=== PATIENT | female | born 2000 | race African-American/Black ===

== ENCOUNTER 2019-10-05 20:58 | Observation (INO) ==
[2019-10-05 23:35] LABS: ABS Basophils 0.1 10^3/ul (0-0.2); ABS Eosinophils 0.1 10^3/ul (0-0.6); ABS Lymphocytes 1.8 10^3/ul (1.0-4.8); ABS Monocytes 0.5 10^3/ul (0-0.8); Eosinophil % 1.9 %; Hematocrit 35 % (35-47); Hemoglobin 11.8 g/dL (12.0-16.0); Lymphocyte % 23.5 %; Mean Corpuscular HGB Conc 34 g/dL (31-36); Mean Corpuscular Hemoglobin 31 pg (27-31); Mean Corpuscular Volume 91 fL (80-97); Mean Platelet Volume 7.8 fL (7.4-10.4); Nucleated Red Blood Cells % 0.1; Platelet Count 209 10^3/uL (150-450); Red Blood Count 3.82 10^6 /uL (3.70-4.87); Red Cell Distribution Width 13 % (10-15); White Blood Count 7.9 10^3/uL (3.5-10.8)
[2019-10-05 23:53] LABS: Albumin 4.4 g/dL (3.2-5.2); Albumin/Globulin Ratio 1.4 (1-3); BUN/Creatinine Ratio 13.6 (8-20); C Reactive Protein 15.05 mg/L (<8.01); Calcium 9.2 mg/dL (8.6-10.3); EGFR African American 110.2 (>60); EGFR Non-African American 91.1 (>60); Globulin 3.2 g/dL (2-4); Potassium 3.2 mmol/L (3.5-5.0); Total Bilirubin 0.4 mg/dL (0.2-1.0); Total Protein 7.6 g/dL (6.4-8.9)
[2019-10-06] MEDS ORDERED: NS 0.9% 1000 ml BAG 1,000 ML IV ONE (00:40)
[2019-10-06 00:49] LABS: Urine Appearance Clear; Urine Bacteria Absent (Absent); Urine Bilirubin Negative (Negative); Urine Blood Negative (Negative); Urine Color Yellow; Urine Glucose Negative (Negative); Urine Ketones Negative (Negative); Urine Nitrite Negative (Negative); Urine Protein Negative (Negative); Urine Red Blood Cell Absent (Absent); Urine Specific Gravity 1.025 (1.010-1.030); Urine Squamous Epithelial Cell Present (Absent); Urine Urobilinogen Negative (Negative); Urine White Blood Cell Absent (Absent)
[2019-10-06] MEDS ORDERED: Piperacillin/Tazobac ADVAN(*) 3.375 GM in NS 0.9% 100 ml BAG 100 ML IVPB ONE (00:58)
[2019-10-06] MEDS ORDERED: Lactated Ringers 1000 ml BAG 1,000 ML IV SCH (01:05)
[2019-10-06 05:54] LABS: ABS Eosinophils 0.2 10^3/ul (0-0.6); ABS Lymphocytes 2.4 10^3/ul (1.0-4.8); ABS Monocytes 0.4 10^3/ul (0-0.8); Eosinophil % 2.2 %; Hematocrit 29 % (35-47); Hemoglobin 9.8 g/dL (12.0-16.0); Lymphocyte % 35.3 %; Mean Corpuscular HGB Conc 34 g/dL (31-36); Mean Corpuscular Hemoglobin 31 pg (27-31); Mean Corpuscular Volume 90 fL (80-97); Mean Platelet Volume 8.2 fL (7.4-10.4); Nucleated Red Blood Cells % 0.1; Platelet Count 159 10^3/uL (150-450); Red Blood Count 3.19 10^6 /uL (3.70-4.87); Red Cell Distribution Width 13 % (10-15); White Blood Count 6.8 10^3/uL (3.5-10.8)
[2019-10-06] MEDS ORDERED: CEFAZOLIN IVPB ONE (07:57)
[2019-10-06] MEDS ORDERED: NS 0.9% IVPB ONE (07:57)
[2019-10-06] MEDS ORDERED: metroNIDAZOLE IV 500 MG/100ML 500 MG/100 ML BAG IVPB ONE (07:59)
[2019-10-06] MEDS ORDERED: ceFAZolin 2 GM PREMIX in ORs 2 GM/50 ML BAG IVPB ONE (09:00)
[2019-10-06] MEDS ORDERED: Bupivacaine 0.25% EPI 200,000 30 ML SDV ONE (09:19)
[2019-10-06] MEDS ORDERED: Naloxone 0.4 mg VIAL 0.4 mg/ml 1 ml VIAL IV PRN (09:44)
[2019-10-06] MEDS ORDERED: Rocuronium 50 mg VIAL 10 mg/ml 5 ml VIAL (50 mg) ONE (09:51)
[2019-10-06] MEDS ORDERED: fentaNYL 100 mcg/2 ml 50 MCG/ML VIAL ONE (09:51)
[2019-10-06] MEDS ORDERED: Midazolam 2 mg/2 ml VIAL 1 mg/ml 2 ml VIAL (2 mg) ONE (09:51)
[2019-10-06] MEDS ORDERED: Propofol 10 MG/ML 20 ML BTL ONE (11:29)
[2019-10-06] MEDS ORDERED: Ondansetron 4 mg VIAL 2 MG/ML 2 ml VIAL ONE ×2 (11:29→12:14)
[2019-10-06] MEDS ORDERED: Succinylcholine 200 mg VIAL 20 mg/ml 10 ml VIAL (200 mg) ONE (11:29)
[2019-10-06] MEDS ORDERED: Lidocaine 2% PF 5 ML VIAL ONE (11:29)
[2019-10-06] MEDS ORDERED: Dexamethasone IV 4 MG/ML VIAL 1 ml VIAL ONE (11:29)
[2019-10-06] MEDS ORDERED: Acetaminophen IV 1 GM/100ML 100 ML ONE (11:46)
[2019-10-06] MEDS ORDERED: HYDROmorphone 1 MG/1 ML SYRINGE ONE (12:14)
[2019-10-06] MEDS: HYDROmorphone 1 MG/1 ML SYRINGE IV PRN ×4 (12:15→12:51)
[2019-10-06] MEDS ORDERED: Haloperidol 5 mg/ml SDV IV/IM 5 MG/ML AMP ONE (12:20)
[2019-10-06 13:45] LABS: Trichomonas vag NAA Female Negative (Negative)
[2019-10-06 13:50] LABS: Chlamydia trachomatis NAA Negative (Negative); Neisseria gonorrhoeae (GC) NAA Negative (Negative)
[2019-10-06 14:28] VITALS: BP 122/76
== END 2019-10-06 14:31 | disposition home or self-care (01) ==
LOC: SSU 20:58 → ED 20:58 → SSU 10-06 02:42
PROVIDERS: ADMIT Surgery; ATTEND Surgery